=== PATIENT | female | born 1995 | race Caucasian/White ===

== ENCOUNTER → 2020-09-24 13:30 | Outpatient (CLI) | payer MEDICAID, SELFPAY ==
[2020-09-26 15:04] LABS: Probe Check PASS; Specimen Processing Control PASS
== END ==
PROVIDERS: Visit Provider Internal Medicine
DX: Z20.828 Contact with and (suspected) exposure to other viral communicable diseases (principal)
CPT/HCPCS: 87635; U0002

== ENCOUNTER → 2020-10-26 07:43 | Outpatient (CLI) | payer MEDICAID, SELFPAY | PROVIDERS: Referring Provider Internal Medicine; Visit Provider Internal Medicine | DX: Z20.828 Contact with and (suspected) exposure to other viral communicable diseases (principal) | CPT/HCPCS: 87635; U0002 ==